=== PATIENT | male | born 1955 | race American Indian/Alaskan Native ===

== ENCOUNTER 2021-06-02 11:53 | Inpatient (IN) | payer OTHER ==
--- NOTE | 2021-06-02 13:38 | XRay Report ---
CHEST 1 VIEW INDICATION: shortness of breath. COMPARISON: 01/05/2015 FINDINGS: Support devices: None. Heart: There is borderline to mild cardiomegaly. Lungs/Pleura: Trace pleural effusions could be present. The lungs are clear otherwise. No evidence fo r pneumonia or pneumothorax. Additional findings: None. IMPRESSION: Borderline to mild cardiomegaly. Trace pleural effusions. Signer Name: Beck Palomino Jr, MD Signed: 06/02/2021 1:33 PM Workstation Name: [id number]
[2021-06-02 18:07] LABS: Basophils % (Auto) 0.3 % (0.0-1.8); Eosinophils # (Auto) 0.1 K/mm3 (0.0-0.4); Eosinophils % (Auto) 2.2 % (0.0-4.3); Hematocrit 46.8 % (35.5-45.6); Hemoglobin 15.3 gm/dl (11.8-15.2); Lymphocytes # (Auto) 2.9 K/mm3 (1.2-5.4); Lymphocytes % (Auto) 52.5 % (13.4-35.0); Mean Corpuscular HGB Conc 33 % (32-34); Mean Corpuscular Volume 91 fl (84-94); Monocytes # (Auto) 0.4 K/mm3 (0.0-0.8); Monocytes % (Auto) 6.5 % (0.0-7.3); Platelet Count 186 K/mm3 (140-440); Red Blood Count 5.14 M/mm3 (3.65-5.03)
[2021-06-02 18:13] LABS: Creatine Kinase MB 2.4 ng/mL (0.0-4.0)
[2021-06-02 18:15] LABS: Alanine Aminotransferase 41 units/L (7-56); Albumin 3.9 g/dL (3.9-5); BUN/Creatinine Ratio 13; Blood Urea Nitrogen 14 mg/dL (9-20); Calcium 9.1 mg/dL (8.4-10.2); Hemolysis Index 63
--- NOTE | 2021-06-02 22:02 | Emergency Department Report ---
ED Shortness of Breath HPI - General Chief Complaint: Dyspnea/Respdistress Stated Complaint: SOB/WEAK Time Seen by Provider: 06/02/21 21:50 Source: patient Mode of arrival: Ambulatory Limitations: No Limitations - History of Present Illness Initial Comments: Patient is 65 years old male with history of hypertension and coronary artery disease. Patient presented to the ER complaining of 10-day history of generalized weakness, shortness of breath and difficulty laying flat. Patient stated that he noticed that even if he walks for short distance he will be out of breath. He denied any chest pain or cough. Patient also denied any fever or chills. MD Complaint: shortness of breath -: days(s) (10) Associated Symptoms: orhopnia - Related Data Home Medications Medication Instructions Recorded Confirmed Last Taken Losartan/Hydrochlorothiazide 1 tab PO QDAY 01/06/16 01/06/16 01/05/16 [Losartan-Hctz 100-12.5 mg Tab] Previous Rx's Medication Instructions Recorded Last Taken Type Aspirin [Aspirin BABY CHEW TAB] 81 mg PO QDAY #30 tab.chew 01/07/15 01/01/16 Rx AtorvaSTATin [Lipitor] 20 mg PO QHS #30 tablet 01/07/15 01/01/16 Rx sotaloL [Betapace] 80 mg PO Q12HR #60 tablet 01/07/15 01/01/16 Rx Allergies Allergy/AdvReac Type Severity Reaction Status Date / Time No Known Allergies Allergy Unverified 01/05/15 21:06 ED Review of Systems ROS: Stated complaint: SOB/WEAK Other details as noted in HPI Comment: All other systems reviewed and negative Constitutional: denies: chills, fever Respiratory: orthopnea, shortness of breath, SOB with exertion, SOB at rest. denies: cough Cardiovascular: palpitations. denies: chest pain Gastrointestinal: denies: abdominal pain, nausea, vomiting Musculoskeletal: denies: back pain Neurological: denies: headache, weakness, numbness, paresthesias, confusion ED Past Medical Hx - Past Medical History Hx Hypertension: Yes (2014) Hx Congestive Heart Failure: No Hx Diabetes: No Hx Asthma: No Hx COPD: No - Surgical History Hx Appendectomy: Yes - Social History Smoking Status: Former Smoker - Medications Home Medications: Home Medications Medication Instructions Recorded Confirmed Last Taken Type Aspirin [Aspirin BABY CHEW TAB] 81 mg PO QDAY #30 tab.chew 01/07/15 01/06/16 01/01/16 Rx AtorvaSTATin [Lipitor] 20 mg PO QHS #30 tablet 01/07/15 01/06/16 01/01/16 Rx sotaloL [Betapace] 80 mg PO Q12HR #60 tablet 01/07/15 01/06/16 01/01/16 Rx Losartan/Hydrochlorothiazide 1 tab PO QDAY 01/06/16 01/06/16 01/05/16 History [Losartan-Hctz 100-12.5 mg Tab] ED Physical Exam - General Limitations: No Limitations General appearance: alert, in distress - Head Head exam: Present: atraumatic, normocephalic, normal inspection - ENT ENT exam: Present: normal exam, normal orophraynx, mucous membranes moist - Neck Neck exam: Present: normal inspection, full ROM. Absent: tenderness, meningi smus - Respiratory Respiratory exam: Present: rales, decreased breath sounds. Absent: wheezes - Cardiovascular Cardiovascular Exam: Present: tachycardia, gallop - GI/Abdominal GI/Abdominal exam: Present: soft, normal bowel sounds. Absent: distended, tenderness, guarding, rebound, rigid - Extremities Exam Extremities exam: Present: pedal edema (+1). Absent: calf tenderness - Back Exam Back exam: Present: normal inspection - Neurological Exam Neurological exam: Present: alert, oriented X3, CN II-XII intact, normal gait, reflexes normal. Absent: motor sensory deficit - Psychiatric Psychiatric exam: Present: normal mood - Skin Skin exam: Present: warm, intact, normal color ED Course Vital Signs 06/02/21 13:01 Temperature 97.9 F Pulse Rate 103 H Respiratory 24 Rate Blood Pressure 149/114 [Right] O2 Sat by Pulse 100 Oximetry ED Medical Decision Making - Lab Data Result diagrams: 06/02/21 17:32 06/02/21 17:32 - EKG Data -: EKG Interpreted by Az Rate: normal - EKG Data 06/02/21 22:40 Atrial fibrillation with a heart rate of 94. - Radiology Data Radiology results: report reviewed - Medical Decision Making Patient is 65 years old male with history of hypertension and coronary artery disease. Patient presented to the ER complaining of 10-day history of generalized weakness, shortness of breath and difficulty laying flat. Patient stated that he noticed that even if he walks for short distance he will be out of breath. He denied any chest pain or cough. Patient also denied any fever or chills. Patient with moderate respiratory distress unable to lay flat. Chest x-ray sh owed pulmonary edema and pleural effusion. Labs reviewed and showed a BNP of more than 3000. Patient received Lasix 60 mg IV. I discussed the patient with Dr. Funes, he agreed to admit the patient to medical service for further management. Critical Care Time: Yes Critical care time in (mins) excluding proc time.: 35 Critical care attestation.: If time is entered above; I have spent that time in minutes in the direct care of this critically ill patient, excluding procedure time. ED Disposition Clinical Impression: New onset of congestive heart failure Disposition: ADMITTED INPATIENT Is pt being admited?: Yes Condition: Stable Referrals: PRIMARY CARE, [Primary Care Provider] - 3-5 Days
[2021-06-02] MEDS: FUROSEMIDE 40 MG/4 ML INJ IV ONE (22:13)
[2021-06-03] MEDS ORDERED: ALBUTEROL 2.5 MG/3 ML NEBU IH PRN (01:35)
[2021-06-03] MEDS ORDERED: ONDANSETRON 4 MG/2 ML INJ IV PRN (01:35)
[2021-06-03] MEDS ORDERED: ACETAMINOPHEN 325 MG TAB PO PRN (01:35)
[2021-06-03] MEDS ORDERED: HYDROmorphone 1 MG/1 ML INJ IV PRN (01:35)
[2021-06-03] MEDS ORDERED: MORPHINE 2 MG/1 ML INJ IV PRN (01:35)
--- NOTE | 2021-06-03 01:43 | History and Physical Report ---
History of Present Illness Date of examination: 06/03/21 Date of admission: 06/03/21 Chief complaint: Shortness of breath History of present illness: 65 years old male with history of hypertension and coronary artery disease was brought to the emergency room because of 10-day history of generalized weakness, shortness of breath and difficulty laying flat. Patient stated that he noticed that even if he walks for short distance he will be out of breath. He denied any chest pain or cough. Patient also denied any fever or chills. In the emergency room patient is found to have acute CHF exacerbation, patient proBNP is 3007, chest x-ray shows borderline to mild cardiomegaly, trace pleural effusion. We will going to admit the patient we will put the patient on IV Lasix consult cardiology and order echocardiogram Past History Past Medical History: hypertension Past Surgical History: appendectomy, Other Social history: smoking Family history: hypertension Medications and Allergies Allergies Allergy/AdvReac Type Severity Reaction Status Date / Time No Known Allergies Allergy Unverified 01/05/15 21:06 Home Medications Medication Instructions Recorded Confirmed Last Taken Type Aspirin [Aspirin BABY CHEW TAB] 81 mg PO QDAY #30 tab.chew 01/07/15 01/06/16 01/01/16 Rx AtorvaSTATin [Lipitor] 20 mg PO QHS #30 tablet 01/07/15 01/06/16 01/01/16 Rx sotaloL [Betapace] 80 mg PO Q12HR #60 tablet 01/07/15 01/06/16 01/01/16 Rx Losartan/Hydrochlorothiazide 1 tab PO QDAY 01/06/16 01/06/16 01/05/16 History [Losartan-Hctz 100-12.5 mg Tab] Review of Systems All systems: negative Cardiovascular: orthopnea, edema, shortness of breath, dyspnea on exertion, paroxysmal nocturnal dyspnea Respiratory: shortness of breath, dyspnea on exertion Exam - Constitutional Vitals: Temp Pulse Resp BP Pulse Ox 97.9 F 103 H 24 149/114 99 06/02/21 13:01 06/02/21 13:01 06/02/21 13:01 06/02/21 13:01 06/02/21 13:03 General appearance: Present: no acute distress, well-nourished - EENT Eyes: Present: PERRL ENT: hearing intact, clear oral mucosa - Neck Neck: Present: supple, normal ROM - Respiratory Respiratory effort: normal Respiratory: bilateral: rales - Cardiovascular Heart Sounds: Present: S1 & S2. Absent: rub, click - Extremities Extremities: pulses symmetrical, No edema Peripheral Pulses: within normal limits - Abdominal General gastrointestinal: Present: soft, non-tender, non-distended, normal bowel sounds Male genitourinary: Present: normal - Integumentary Integumentary: Present: clear, warm, dry - Musculoskeletal Musculoskeletal: gait normal, strength equal bilaterally - Psychiatric Psychiatric: appropriate mood/affect, intact judgment & insight - Neurologic Neurologic: CNII-XII intact, moves all extremities HEART Score - HEART Score Troponin: Troponin T < 0.010 ng/mL (0.00-0.029) 06/02/21 20:15 Results - Labs CBC & Chem 7: 06/02/21 17:32 06/02/21 17:32 Labs: Laboratory Last Values WBC 5.5 K/mm3 (4.5-11.0) 06/02/21 17:32 RBC 5.14 M/mm3 (3.65-5.03) H 06/02/21 17:32 Hgb 15.3 gm/dl (11.8-15.2) H 06/02/21 17:32 Hct 46.8 % (35.5-45.6) H 06/02/21 17:32 MCV 91 fl (84-94) 06/02/21 17:32 MCH 30 pg (28-32) 06/02/21 17:32 MCHC 33 % (32-34) 06/02/21 17:32 RDW 14.0 % (13.2-15.2) 06/02/21 17:32 Plt Count 186 K/mm3 (140-440) 06/02/21 17:32 Lymph % (Auto) 52.5 % (13.4-35.0) H 06/02/21 17:32 [place] % (Auto) 6.5 % (0.0-7.3) 06/02/21 17:32 Eos % (Auto) 2.2 % (0.0-4.3) 06/02/21 17:32 Baso % (Auto) 0.3 % (0.0-1.8) 06/02/21 17:32 Lymph # (Auto) 2.9 K/mm3 (1.2-5.4) 06/02/21 17:32 [place] # (Auto) 0.4 K/mm3 (0.0-0.8) 06/02/21 17:32 Eos # (Auto) 0.1 K/mm3 (0.0-0.4) 06/02/21 17:32 Baso # (Auto) 0.0 K/mm3 (0.0-0.1) 06/02/21 17:32 Seg Neutrophils % 38.5 % (40.0-70.0) L 06/02/21 17:32 Seg Neutrophils # 2.1 K/mm3 (1.8-7.7) 06/02/21 17:32 Sodium 140 mmol/L (137-145) 06/02/21 17:32 Potassium 3.8 mmol/L (3.6-5.0) 06/02/21 17:32 Chloride 104.2 mmol/L (98-107) 06/02/21 17:32 Carbon Dioxide 22 mmol/L (22-30) 06/02/21 17:32 Anion Gap 18 mmol/L 06/02/21 17:32 BUN 14 mg/dL (9-20) 06/02/21 17:32 Creatinine 1.1 mg/dL (0.8-1.3) 06/02/21 17:32 Estimated GFR > 60 ml/min 06/02/21 17:32 BUN/Creatinine Ratio 13 % 06/02/21 17:32 Glucose 100 mg/dL (75-100) 06/02/21 17:32 Calcium 9.1 mg/dL (8.4-10.2) 06/02/21 17:32 Total Bilirubin 1.00 mg/dL (0.1-1.2) 06/02/21 17:32 AST 32 units/L (5-40) 06/02/21 17:32 ALT 41 units/L (7-56) 06/02/21 17:32 Alkaline Phosphatase 58 units/L (35-129) 06/02/21 17:32 Total Creatine Kinase 138 units/L (55-170) 06/02/21 17:32 CK-MB (CK-2) 2.4 ng/mL (0.0-4.0) 06/02/21 17:32 CK-MB (CK-2) Rel Index 1.7 (0-4) 06/02/21 17:32 Troponin T < 0.010 ng/mL (0.00-0.029) 06/02/21 20:15 NT-Pro-B Natriuret Pep 3007 pg/mL (0-900) H 06/02/21 17:32 Total Protein 6.5 g/dL (6.3-8.2) 06/02/21 17:32 Albumin 3.9 g/dL (3.9-5) 06/02/21 17:32 Albumin/Globulin Ratio 1.5 % 06/02/21 17:32 - Imaging and Cardiology Chest x-ray: report reviewed Assessment and Plan VTE prophylaxis?: Chemical Plan of care discussed with patient/family: Yes - Patient Problems (1) New onset of congestive heart failure Current Visit: Yes Status: Acute Plan to address problem: Admit the patient to the medical telemetry. Cardiac diet. Lasix 40 mg IV every 12 hours. DuoNeb by nebulizer every 4 hours. Echocardiogram. Fluid restriction. Cardiology consult (2) Tobacco abuse Current Visit: Yes Status: Acute Plan to address problem: We counseled regarding quitting smoking. (3) Paroxysmal atrial flutter Current Visit: No Status: Acute Plan to address problem: Stable. He continues sotalol 80 mg p.o. every 12 hours. Echocardiogram. Cardiology consult (4) Hypertension Current Visit: No Status: Chronic Plan to address problem: Losartan/hydrochlorothiazide 1 tablet p.o. daily. Sotalol 80 mg p.o. every 12 hours. We will monitor the blood pressure closely (5) DVT prophylaxis Current Visit: Yes Status: Acute Plan to address problem: Heparin 5000 units subcu every 12 hours for DVT prophylaxis. Pepcid 20 mg p.o. twice daily for GI prophylaxis. Patient is a full code
[2021-06-03 02:56] LABS: Bilirubin,Urine NEG (Negative); Blood,Urine SM (Negative); Color,Urine Straw (Yellow); Protein,Urine <15 mg/dL mg/dL (Negative); Urobilinogen,Urine < 2.0 mg/dL (<2.0); WBC,Urine < 1.0 /HPF (0.0-6.0)
[2021-06-03] MEDS: IPRATROPIUM/ALBUTEROL SULFATE 3 ML AMPUL.NEB IH SCH ×2 (05:42→13:08)
[2021-06-03] MEDS: FUROSEMIDE 40 MG/4 ML INJ IV ONE (05:43)
[2021-06-03] MEDS: FUROSEMIDE 40 MG/4 ML INJ IV SCH ×2 (06:10→17:54)
[2021-06-03] MEDS: FAMOTIDINE 20 MG TAB PO SCH ×2 (09:13→21:46)
[2021-06-03] MEDS: LOSARTAN 50 MG TAB PO SCH (09:13)
[2021-06-03] MEDS ORDERED: HEPARIN 5,000 UNIT/1 ML VIAL SUB-Q SCH ×2 (10:00)
[2021-06-03] MEDS ORDERED: LOSARTAN PO SCH (10:00)
[2021-06-03] MEDS ORDERED: HYDROCHLOROTHIAZIDE PO SCH (10:00)
[2021-06-03] MEDS ORDERED: carvediloL 6.25 MG TAB PO SCH (10:00)
[2021-06-03] MEDS ORDERED: ASPIRIN 81 MG TAB CHEW PO SCH (10:00)
[2021-06-03] MEDS ORDERED: [UNRECOGNIZED DRUG - OTHER] PO SCH (10:00)
[2021-06-03] MEDS ORDERED: hydroCHLOROthiazide 12.5 MG CAP PO SCH (10:00)
--- NOTE | 2021-06-03 11:33 | Electrocardiograph Report ---
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
--- NOTE | 2021-06-03 12:51 | Consultation ---
History of Present Illness Consult date: 06/03/21 Requesting physician: TAE JOE Consult reason: atrial fibrillation, congestive heart failure History of present illness: Chief complaint: Fatigue, shortness of breath This is a 65-year-old -[place] male, known to our practice, but has not been seen since 10/2019, with past medical history significant for hypertension and atrial fib (on Eliquis), who presented to [facility] yesterday after several weeks of worsening fatigue and shortness of breath. Patient states that he has been discussing his decreased energy with his primary care provider, but was not able to obtain an appointment until of the end of June, and over the last week his fatigue and dyspnea became so bad that he decided to bring himself to the ED. He endorses severe fatigue, shortness of breath, exercise intolerance, exerti onal dyspnea, orthopnea. Denies PND. Denies bilateral lower extremity swelling. He states that he has been compliant with all medication. Does not follow cardiac diet. Of note, patient admits to 2-3 beers every day, more on weekends or with other people. Patient has not had any significant recent travel. Cardiology was consulted for heart failure. Past History Past Medical History: atrial fib, hypertension Past Surgical History: appendectomy, Other Social history: smoking, alcohol abuse Family history: hypertension Medications and Allergies Allergies Allergy/AdvReac Type Severity Reaction Status Date / Time No Known Allergies Allergy Unverified 01/05/15 21:06 Home Medications Medication Instructions Recorded Confirmed Last Taken Type Aspirin [Aspirin BABY CHEW TAB] 81 mg PO QDAY #30 tab.chew 01/07/15 01/06/16 01/01/16 Rx AtorvaSTATin [Lipitor] 20 mg PO QHS #30 tablet 01/07/15 01/06/16 01/01/16 Rx sotaloL [Betapace] 80 mg PO Q12HR #60 tablet 01/07/15 01/06/16 01/01/16 Rx Losartan/Hydrochlorothiazide 1 tab PO QDAY 01/06/16 01/06/16 01/05/16 History [Losartan-Hctz 100-12.5 mg Tab] Active Meds: Active Medications Acetaminophen (Acetaminophen 325 Mg Tab) 650 mg PO Q4H PRN PRN Reason: Pain MILD(1-3)/Fever >100.5/DAHL Albuterol (Albuterol 2.5 Mg/3 Ml Nebu) 2.5 mg IH Q3HRT PRN PRN Reason: Shortness Of Breath Apixaban (Apixaban 5 Mg Tab) 5 mg PO Q12HR [facility]; Protocol Aspirin (Aspirin 81 Mg Tab Chew) 81 mg PO QDAY [facility] Last Admin: 06/03/21 09:11 Dose: 81 mg Atorvastatin Calcium (Atorvastatin 20 Mg Tab) 20 mg PO QHS [facility] Famotidine (Famotidine 20 Mg Tab) 20 mg PO BID [facility] Last Admin: 06/03/21 09:13 Dose: 20 mg Furosemide (Furosemide 40 Mg/4 Ml Inj) 40 mg IV BID@0600,1800 [facility] Stop: 06/03/21 20:00 Last Admin: 06/03/21 06:10 Dose: 40 mg Furosemide (Furosemide 40 Mg Tab) 40 mg PO QDAY [facility] Hydromorphone HCl (Hydromorphone 1 Mg/1 Ml Inj) 0.5 mg IV Q3H PRN PRN Reason: Pain , Severe (7-10) Losartan Potassium (Losartan 50 Mg Tab) 100 mg PO QDAY [facility] Last Admin: 06/03/21 09:13 Dose: 100 mg Metoprolol Tartrate (Metoprolol Tartrate 50 Mg Tab) 50 mg PO BID [facility] Morphine Sulfate (Morphine 2 Mg/1 Ml Inj) 2 mg IV Q4H PRN PRN Reason: Pain, Moderate (4-6) Ondansetron HCl (Ondansetron 4 Mg/2 Ml Inj) 4 mg IV Q8H PRN PRN Reason: Nausea And Vomiting Sodium Chloride (Sodium Chloride 0.9% 10 Ml Flush Syringe) 10 ml IV BID [facility] Last Admin: 06/03/21 09:15 Dose: 10 ml Sodium Chloride (Sodium Chloride 0.9% 10 Ml Flush Syringe) 10 ml IV PRN PRN PRN Reason: LINE FLUSH Review of Systems All systems: negative Constitutional: fatigue Cardiovascular: orthopnea, shortness of breath, dyspnea on exertion, decreased exercise tolerance, no chest pain, no palpitations, no rapid/irregular heart beat, no edema, no syncope, no paroxysmal nocturnal dyspnea, no leg edema Respiratory: no cough Gastrointestinal: no nausea, no vomiting, no diarrhea Physical Examination Vital Signs Vital Signs - 8 hr 06/03/21 06/03/21 06/03/21 05:09 05:16 08:43 Temperature 98.5 F Pulse Rate 66 84 Respiratory 18 18 Rate Blood Pressure 145/84 O2 Sat by Pulse 98 97 Oximetry 06/03/21 06/03/21 09:25 09:28 Temperature Pulse Rate Respiratory Rate Blood Pressure O2 Sat by Pulse 96 96 Oximetry General appearance: no acute distress HEENT: Positive: Normocephaly, Mucus Membranes Moist Neck: Positive: neck supple Cardiac: Positive: irregularly irregular, S1/S2 Lungs: Positive: clear to auscultation Neuro: Positive: Grossly Intact Abdomen: Positive: Soft, Active Bowel Sounds Male genitourinary: Positive: deferred Skin: Negative: Rash Extremities: Present: upper extr. pulses (1+). Absent: edema Results 06/02/21 17:32 06/02/21 17:32 Cardiac Enzymes 06/02/21 Range/Units 17:32 AST 32 (5-40) units/L CK-MB (CK-2) 2.4 (0.0-4.0) ng/mL CBC 06/02/21 Range/Units 17:32 WBC 5.5 (4.5-11.0) K/mm3 RBC 5.14 H (3.65-5.03) M/mm3 Hgb 15.3 H (11.8-15.2) gm/dl Hct 46.8 H (35.5-45.6) % Plt Count 186 (140-440) K/mm3 Lymph # (Auto) 2.9 (1.2-5.4) K/mm3 [place] # (Auto) 0.4 (0.0-0.8) K/mm3 Eos # (Auto) 0.1 (0.0-0.4) K/mm3 Baso # (Auto) 0.0 (0.0-0.1) K/mm3 Comprehensive Metabolic Panel 06/02/21 Range/Units 17:32 Sodium 140 (137-145) mmol/L Potassium 3.8 (3.6-5.0) mmol/L Chloride 104.2 (98-107) mmol/L Carbon Dioxide 22 (22-30) mmol/L BUN 14 (9-20) mg/dL Creatinine 1.1 (0.8-1.3) mg/dL Glucose 100 (75-100) mg/dL Calcium 9.1 (8.4-10.2) mg/dL AST 32 (5-40) units/L ALT 41 (7-56) units/L Alkaline Phosphatase 58 (35-129) units/L Total Protein 6.5 (6.3-8.2) g/dL Albumin 3.9 (3.9-5) g/dL - Imaging and Cardiology Echo: pending EKG: image reviewed EKG interpretations - EKG Supraventricular dysrhythmia: atrial fibrillation Chamber hypertrophy or enlargement: left ventricular hypertro Assessment and Plan Assessment Acute systolic heart failure A. fib with RVR Hypertension EtOH abuse Cardiographics EKG-06/02/2021 atrial fibrillation, RVR, with LVH. Chest x-ray 06/02/21-borderline to mild cardiomegaly. Trace pleural effusion Echocardiogram-(08/2019 EF 50-55%) Recommendations/plan Echocardiogram pending. Patient's shortness of breath has improved today. Patient no longer orthopnic Evidence of A. fib with RVR. Needs better rate control. Will discontinue Coreg. Initiate metoprolol 50 mg twice daily p.o. Will get final dose of IV Lasix this evening. Transition to 40 mg p.o. Lasix daily starting tomorrow. Continue Eliquis 5 mg p.o. every 12 hours, aspirin 81 mg p.o. daily, atorvastatin 20 mg p.o. nightly, losartan 100 mg p.o. daily BMP and CBC in a.m. Strict I's and O's, daily weights. Counseled to decrease/discontinue alcohol use. Patient seen in conjunction with Dr. Lott who agrees with the assessment and management of this patient. - Patient Problems (1) Atrial fibrillation with RVR Current Visit: Yes Status: Acute (2) Acute systolic (congestive) heart failure Current Visit: Yes Status: Acute (3) Hypertension Current Visit: Yes Status: Chronic
[2021-06-03] MEDS: METOPROLOL TARTRATE 50 MG TAB PO SCH ×2 (14:20→21:46)
--- NOTE | 2021-06-03 14:37 | Event Note ---
Date: 06/03/21 The patient was evaluated this morning, and he was found to be hemodynamically stable. #Acute systolic heart failure #Atrial fibrillation with RVR #Hypertension Chest x-ray revealing increased cardiac silhouette Pro BNP 3007 Continue IV diuresis with 40 mg Lasix twice daily. Transitioning to p.o. Lasix tomorrow. TTE pending to evaluate EF Cardiology consulted; appreciate recs Discontinuing Coreg and starting metoprolol tartrate 50 mg twice daily. Continue Eliquis 5 mg twice daily, aspirin 81 mg daily, atorvastatin 20 mg daily, and losartan 100 mg daily Continue telemetry, strict I's and O's, fluid restriction. Continue to monitor. #Advanced care planning -Disease education conducted, care plan discussed, diagnoses discussed, prognosis discussed, and patient acknowledges understanding with care plan -Time: +30 min SBP goal <160 and DBP goal <90 while inpatient #Alcohol dependence - Counseled patient on the importance of ETOH cessation. Assess patient's current ETOH consumption. Assisted with trying to arrange resources for patient to adequately work towards ETOH cessation. Patient expresses understanding. -Time: + 15 mins #Tobacco dependence #Tobacco/Smoking cessation counseling - Counseled patient about the importance of smoking cessation and the possible sequelae as a result of continued tobacco consumption. The patient expresses understanding. -Time: +10 mins #Obesity #Weight loss counseling #Exercise counseling - BMI 33 - Counseled patient on the importance of weight loss, incorporating exercise, and dietary changes (lean meats, fresh fruits and vegetables, and water intake). Patient expresses understanding. - Time: +10 min #Coordination of CARE time: 30 minutes. Total visit time equals 30 or more minutes with greater than 50% spent [id number] on coordination of care and counseling.
[2021-06-03 14:48] LABS: Hematocrit 47.8 % (35.5-45.6); Hemoglobin 15.8 gm/dl (11.8-15.2); Mean Corpuscular HGB Conc 33 % (32-34); Mean Corpuscular Volume 91 fl (84-94); Platelet Count 188 K/mm3 (140-440); Red Blood Count 5.25 M/mm3 (3.65-5.03); Red Cell Distribution Width 13.9 % (13.2-15.2)
[2021-06-03 14:58] LABS: INR 1.03 (0.87-1.13); Partial Thromboplastin Time 25.2 Sec. (24.2-36.6)
[2021-06-03] MEDS: APIXABAN 5 MG TAB PO SCH (21:46)
[2021-06-04 06:32] LABS: Basophils % (Auto) 0.3 % (0.0-1.8); Eosinophils # (Auto) 0.1 K/mm3 (0.0-0.4); Eosinophils % (Auto) 1.7 % (0.0-4.3); Hematocrit 48.1 % (35.5-45.6); Hemoglobin 15.7 gm/dl (11.8-15.2); Lymphocytes # (Auto) 2.8 K/mm3 (1.2-5.4); Lymphocytes % (Auto) 49.5 % (13.4-35.0); Mean Corpuscular HGB Conc 33 % (32-34); Mean Corpuscular Volume 91 fl (84-94); Monocytes # (Auto) 0.4 K/mm3 (0.0-0.8); Monocytes % (Auto) 7.8 % (0.0-7.3); Platelet Count 178 K/mm3 (140-440); Red Blood Count 5.27 M/mm3 (3.65-5.03); Red Cell Distribution Width 14.1 % (13.2-15.2)
[2021-06-04 06:56] LABS: BUN/Creatinine Ratio 15; Blood Urea Nitrogen 16 mg/dL (9-20); Calcium 8.3 mg/dL (8.4-10.2); Hemolysis Index 17
[2021-06-04] MEDS ORDERED: POTASSIUM CHLORIDE ER 20 MEQ TAB PO SCH (09:00)
[2021-06-04] MEDS ORDERED: FUROSEMIDE 40 MG TAB PO SCH (10:00)
[2021-06-04] MEDS: METOPROLOL TARTRATE 50 MG TAB PO SCH (10:26)
[2021-06-04] MEDS: FAMOTIDINE 20 MG TAB PO SCH (10:26)
[2021-06-04] MEDS: APIXABAN 5 MG TAB PO SCH (10:27)
[2021-06-04] MEDS: LOSARTAN 50 MG TAB PO SCH (10:28)
[2021-06-04] MEDS ORDERED: METOPROLOL TARTRATE 50 MG TAB PO SCH (10:46)
--- NOTE | 2021-06-04 11:45 | Progress Note ---
Assessment and Plan Atrial fibrillation with CVR * Metoprolol increased to 50 mg twice daily. * Continue Eliquis 5 mg twice daily Heart failure reduced ejection fraction in setting of new onset cardiomyopathy * Echocardiogram 08/30/2019: LVEF 50 to 55%. * Echocardiogram 06/03/2021: LVEF 40 to 45%. * Patient is chest pain-free. Twelve-lead shows no acute ischemic changes. Troponins are negative x2. AMI is ruled out. * Will plan for outpatient ischemic eval with established cardiology. * Goal-directed medical therapy: Continue aspirin 81 mg daily, statin 20 mg nightly, losartan 100 mg p.o. daily, metoprolol tartrate 100 mg twice daily. * Continue Lasix 40 mg p.o. daily. Patient is near euvolemia and may discharge from cardiology standpoint. Patient should follow-up with Dr Garcia, [facility] specialists on 06/16/2021 at 10:30 AM in our [place] location. #[phone] Patient seen in conjunction with Dr. Lott who agrees with the assessment and management of this patient. - Patient Problems (1) Atrial fibrillation with RVR Current Visit: Yes Status: Acute (2) Acute systolic (congestive) heart failure Current Visit: Yes Status: Acute (3) Hypertension Current Visit: Yes Status: Chronic (4) Cardiomyopathy Current Visit: Yes Status: Chronic Subjective Date of service: 06/04/21 Principal diagnosis: Exacerbation of Congestive Heart Failure Interval history: Patient is resting in bed comfortably. No issues overnight Telemetry shows atrial fib heart rate 80s, no events Objective Last Vital Signs Temp 97.7 F 06/04/21 03:25 Pulse 85 06/04/21 05:00 Resp 18 06/04/21 05:00 BP 136/104 06/04/21 03:25 Pulse Ox 99 06/04/21 09:11 - Physical Examination General: No Apparent Distress HEENT: Positive: Normocephaly, Mucus Membranes Moist Neck: Positive: neck supple Cardiac: Positive: irregularly irregular Lungs: Positive: clear to auscultation, Normal Breath Sounds Neuro: Positive: Grossly Intact Abdomen: Positive: Soft, Active Bowel Sounds Skin: Negative: Rash Musculoskeletal: No Pain, Normal Range of Motion Extremities: Present: upper extr. pulses (1+). Absent: edema - Labs and Meds Coagulation 06/03/21 Range/Units 13:40 PT 14.7 (12.2-14.9) Sec. INR 1.03 (0.87-1.13) APTT 25.2 (24.2-36.6) Sec. CBC 06/03/21 06/04/21 Range/Units 13:40 05:54 WBC 5.4 5.6 (4.5-11.0) K/mm3 RBC 5.25 H 5.27 H (3.65-5.03) M/mm3 Hgb 15.8 H 15.7 H (11.8-15.2) gm/dl Hct 47.8 H 48.1 H (35.5-45.6) % Plt Count 188 178 (140-440) K/mm3 Lymph # (Auto) 2.8 (1.2-5.4) K/mm3 [place] # (Auto) 0.4 (0.0-0.8) K/mm3 Eos # (Auto) 0.1 (0.0-0.4) K/mm3 Baso # (Auto) 0.0 (0.0-0.1) K/mm3 Comprehensive Metabolic Panel 06/03/21 06/04/21 Range/Units 13:40 05:54 Sodium 140 (137-145) mmol/L Potassium 3.5 L (3.6-5.0) mmol/L Chloride 100.8 (98-107) mmol/L Carbon Dioxide 27 (22-30) mmol/L BUN 16 (9-20) mg/dL Creatinine 1.2 1.1 (0.8-1.3) mg/dL Glucose 109 H (75-100) mg/dL Calcium 8.3 L (8.4-10.2) mg/dL - Imaging and Cardiology EKG: image reviewed Echo: pending, report reviewed (Status post cardiac arrest echocardiogram 06/03/2021: LVEF is 40 to 45%. LV SF mildly decreased. Mild LVH. Mild global hypokinesis of LV. RV SF normal. RV is dilated.) - Telemetry EKG Rhythm: Atrial Fibrillation Chamber hypertrophy or enlargement: left ventricular hypertro
[2021-06-04 12:02] VITALS: BP 156/86
[2021-06-04] MEDS ORDERED: ASPIRIN 81 MG TAB CHEW PO SCH (12:30)
--- NOTE | 2021-06-04 12:49 | Discharge Summary ---
Providers - Providers Date of Admission: 06/03/21 01:35 Date of discharge: 06/04/21 Attending physician: CORA URRUTIA MD 06/03/21 01:35 Consult to Physician [CONS] Routine Comment: Consulting Provider: NITIN GRACE Physician Instructions: Reason For Exam: chf Primary care physician: [employer] Hospitalization Reason for admission: Acute systolic heart failure, A. fib with RVR Condition: Stable Pertinent studies: Reviewed. Procedures: None. Hospital course: Patient is a 65-year-old male past medical history of hypertension, atrial fibrillation (on Eliquis), tobacco dependence, alcohol dependence, and obesity who presented with 10 days of generalized weakness, shortness of breath, and orthopnea. Patient described noticing that he would be out of breath after walking short distances. In the emergency room, the patient was found to be in acute heart failure exacerbation with a proBNP of 3007. Chest x-ray was suggestive of increased cardiac silhouette with trace pleural effusions. Patient underwent IV diuresis with Lasix, TTE was ordered, and cardiology was consulted. TTE revealed EF 40-45% with mild global hypokinesis of the LV, mild concentric LVH, and mildly decreased LV systolic function. RV is dilated, RA is dilated, LA is mildly dilated,, and RVSP is 25 mmHg. Diuresis resulted and significant clinical improvement. Patient's medications were transitioned to better treat his atrial fibrillation and heart failure. Patient is medically clear for discharge. Disposition: 01 HOME / SELF CARE / HOMELESS Final Discharge Diagnosis (Prints w/discharge instructions): Acute systolic heart failure, atrial fibrillation with RVR, hypertension, tobacco dependence, alcohol dependence, obesity. Time spent for discharge: 45 min Core Measure Documentation - Palliative Care Palliative Care/ Comfort Measures: Not Applicable - Core Measures Any of the following diagnoses?: heart failure - Heart Failure Discharge Requirements GERSON/ARB for LVSD if EF <40%: Yes Beta angella at discharge: Yes Exam - Constitutional Vitals: Temp Pulse Resp BP Pulse Ox 97.6 F 66 16 156/86 99 06/04/21 08:13 06/04/21 08:13 06/04/21 08:13 06/04/21 08:13 06/04/21 09:11 General appearance: Present: no acute distress, well-nourished, obese - EENT Eyes: Present: PERRL, EOM intact ENT: hearing intact, clear oral mucosa, dentition normal - Neck Neck: Present: supple, normal ROM - Respiratory Respiratory effort: normal Respiratory: bilateral: CTA - Cardiovascular Rhythm: irregularly irregular Heart Sounds: Present: S1 & S2 - Extremities Extremities: no ischemia, pulses intact, pulses symmetrical, No edema, normal temperature, normal color, Full ROM Peripheral Pulses: within normal limits - Abdominal General gastrointestinal: Present: soft, non-tender, non-distended, normal bowel sounds Male genitourinary: Present: deferred - Rectal Rectal Exam: deferred - Integumentary Integumentary: Present: clear, warm, dry - Musculoskeletal Musculoskeletal: strength equal bilaterally - Psychiatric Psychiatric: appropriate mood/affect, intact judgment & insight, memory intact, cooperative - Neurologic Neurologic: CNII-XII intact, moves all extremities - Allied Health Allied health notes reviewed: nursing Plan Activity: advance as tolerated Diet: low salt Additional Instructions: Patient is a 65-year-old male past medical history of hypertension, atrial fibrillation (on Eliquis), tobacco dependence, alcohol dependence, and obesity who presented with 10 days of generalized weakness, shortness of breath, and orthopnea. Patient described noticing that he would be out of breath after walking short distances. In the emergency room, the patient was found to be in acute heart failure exacerbation with a proBNP of 3007. Chest x-ray was suggestive of increased cardiac silhouette with trace pleural effusions. Patient underwent IV diuresis with Lasix, TTE was ordered, and cardiology was consulted. TTE revealed EF 40-45% with mild global hypokinesis of the LV, mild concentric LVH, and mildly decreased LV systolic function. RV is dilated, RA is dilated, LA is mildly dilated,, and RVSP is 25 mmHg. Diuresis resulted and significant clinical improvement. Patient's medications were transitioned to better treat his atrial fibrillation and heart failure. Patient is medically clear for discharge. Care Plan Goals: Patient is medically cleared for discharge. Assessment: Patient is a 65-year-old male past medical history of hypertension, atrial fibrillation (on Eliquis), tobacco dependence, alcohol dependence, and obesity w ho presented with 10 days of generalized weakness, shortness of breath, and orthopnea. Patient described noticing that he would be out of breath after walking short distances. In the emergency room, the patient was found to be in acute heart failure exacerbation with a proBNP of 3007. Chest x-ray was suggestive of increased cardiac silhouette with trace pleural effusions. Patient underwent IV diuresis with Lasix, TTE was ordered, and cardiology was consulted. TTE revealed EF 40-45% with mild global hypokinesis of the LV, mild concentric LVH, and mildly decreased LV systolic function. RV is dilated, RA is dilated, LA is mildly dilated,, and RVSP is 25 mmHg. Diuresis resulted and significant clinical improvement. Patient's medications were transitioned to better treat his atrial fibrillation and heart failure. Patient is medically clear for discharge. Follow up with: PRIMARY CARE, [Primary Care Provider] - 3-5 Days LEEANNA GUERRERO MD [Staff Physician] - 06/16/21 10:30 am Prescriptions: Apixaban [Eliquis] 5 mg PO Q12HR #60 tablet Furosemide [Lasix TAB] 40 mg PO QDAY #30 tablet Metoprolol [Lopressor TAB] 100 mg PO BID #60 tablet
[2021-06-04] MEDS ORDERED: METOPROLOL TARTRATE 100 MG TAB PO SCH (22:00)
== END 2021-06-04 16:24 | disposition home or self-care (01) | DRG 291 ==
LOC: ED 11:53 → 4A 06-03 01:35
PROVIDERS: ADMIT Hospitalist; ATTEND Student in an Organized Health Care Education/Training Program
DX: I11.0 Hypertensive heart disease with heart failure (principal); I50.21 Acute systolic (congestive) heart failure; I47.1 Supraventricular tachycardia; I48.92 Unspecified atrial flutter; F10.20 Alcohol dependence, uncomplicated; Z87.891 Personal history of nicotine dependence; I25.10 Atherosclerotic heart disease of native coronary artery without angina pectoris; Z90.49 Acquired absence of other specified parts of digestive tract; I48.91 Unspecified atrial fibrillation; Z82.49 Family history of ischemic heart disease and other diseases of the circulatory system; E66.9 Obesity, unspecified; Z68.33 Body mass index [BMI] 33.0-33.9, adult; I42.9 Cardiomyopathy, unspecified
CPT/HCPCS: 36415; 71045; 80048; 80053; 81001; 82550; 82553; 82565; 83880; 84484; 85025; 85027; 85610; 85730; 93005; 93306; G0378; C8929; J1940

== ENCOUNTER 2021-07-30 09:33 | Emergency (ER) | payer OTHER ==
[2021-07-30 13:01] VITALS: BP 131/89
== END 2021-07-31 05:50 | disposition left against medical advice (07) ==
LOC: ED 09:33
DX: M54.2 Cervicalgia (principal); M54.9 Dorsalgia, unspecified; Z53.21 Procedure and treatment not carried out due to patient leaving prior to being seen by health care provider